=== PATIENT | male | born 1970 | race Caucasian/White ===

== ENCOUNTER 2016-04-26 16:46 | Emergency (ER) | payer OTHER ==
[2016-04-26] MEDS ORDERED: LIDOCAINE VISCOUS 2% 15 ML CUP MUCOUS MEM STA (17:14)
[2016-04-26] MEDS ORDERED: IPRATROPIUM-ALBUTEROL 3 ML NEB INHALATION STA (17:14)
[2016-04-26] MEDS ORDERED: ACETAMINOPHEN TAB 500 MG TAB PO STA (17:14)
--- NOTE | 2016-04-26 17:21 | ED ---
URI HPI - General Chief Complaint: Upper Respiratory Infection Stated Complaint: ENT Time Seen by Provider: 04/26/16 17:06 Source: patient, RN notes reviewed Mode of arrival: ambulatory Limitations: no limitations - History of Present Illness Initial Comments: [age] male presents emergency Department chief complaint cough cold runny nose like symptoms. Patient states she's been for the passed to 3 days. Patient states the cough and a sore throat of the worse. Patient states he has body aches every morning he wakes up. Patient states he hasn't really noticed a high fever with it. Patient states she was concerned due to his continued symptoms and the sore throat states that he should be evaluated. Patient states is not currently having any other symptoms at this time. Patient denies any recent fever, chills, shortness of breath, chest pain, back pain, abdominal pain, nausea vomiting, numbness or tingling, dysuria or hematuria, constipation or diarrhea, headaches or visual changes, or any other current symptoms. - Related Data Home Medications Medication Instructions Recorded Confirmed Multivitamin [Men's Multi-Vitamin] 1 tab PO DAILY 04/26/16 04/26/16 Previous Rx's Medication Instructions Recorded Albuterol Inhaler [Ventolin Hfa 1 - 2 puff INHALATION Q4-6H PRN #1 04/26/16 Inhaler] inhaler Azithromycin [Zithromax] 250 mg PO DIRECTED #6 tab 04/26/16 predniSONE 50 mg PO DAILY #5 tab 04/26/16 Allergies Allergy/AdvReac Type Severity Reaction Status Date / Time No Known Allergies Allergy Verified 04/26/16 17:17 Review of Systems ROS Statement: Those systems with pertinent positive or pertinent negative responses have been documented in the HPI. ROS Other: All systems not noted in ROS Statement are negative. Past Medical History Past Medical History: No Reported History History of Any Multi-Drug Resistant Organisms: None Reported Past Surgical History: Bowel Resection, Hernia Repair Past Psychological History: No Psychological Hx Reported Smoking Status: Never smoker Past Alcohol Use History: Rare Past Drug Use History: None Reported General Exam - General Exam Comments Initial Comments: General exam: Alert, active, comfortable in no apparent distress Head: Normocephalic Eyes: Normal reaction of pupils, equal size, normal range of extraocular motion Ears: normal external ear canals, pink tympanic membranes with normal cone of light Nose: clear with pink turbinates Throat: no erythema or exudates with normal sized tonsils Neck: no masses, no nuchal rigidity Chest: no chest wall deformity Lungs: equal air entry with no crackles or wheeze CVS: S1 and S2 normal with no audible mumurs, regular rhythm Abdomen: no hepatosplenomegaly, normal bowel sounds, no guarding or rigidity Spine: no scoliosis or deformity Skin: no rashes Neurological: No focal deficits, tone is normal in all 4 extremities Limitations: no limitations Course Vital Signs 04/26/16 04/26/16 04/26/16 17:01 17:33 17:40 Temperature 98.3 F Pulse Rate 109 H 100 100 Respiratory 18 Rate Blood Pressure 139/87 O2 Sat by Pulse 95 Oximetry Medical Decision Making - Medical Decision Making 45 male presents to the emergency Department chief complaint cough cold runny nose like symptoms. At this time patient is presenting from bronchitis. He has been sick for a long period of time. Time we'll start an antibiotic as well as an inhaler and steroids. We discussed return parameters and follow-up. The patient stated that he understood and all his questions have been answered. This time the patient will be discharged home. - Lab Data Lab Results 04/26/16 04/26/16 Range/Units 17:25 17:25 Influenza Type A RNA Not Detected (Not Detectd) Influenza Type B (PCR) Not Detected (Not Detectd) Group A Strep Rapid Negative (Negative) - Radiology Data Radiology results: report reviewed, image reviewed Disposition Clinical Impression: Acute bronchitis Disposition: HOME SELF-CARE Condition: Stable Instructions: Acute Bronchitis (ED) Additional Instructions: Please use medication as discussed. Please follow up with family doctor if symptoms have not improved over the next two days. Please return to the emergency room if your symptoms increase or worsen or for any other concerns. Prescriptions: Albuterol Inhaler [Ventolin Hfa Inhaler] 1 - 2 puff INHALATION Q4-6H PRN #1 inhaler PRN Reason: Cough Azithromycin [Zithromax] 250 mg PO DIRECTED #6 tab predniSONE 50 mg PO DAILY #5 tab Referrals: Adarsh Holguin MD [Primary Care Provider] - 1-2 days Time of Disposition: 19:23
--- NOTE | 2016-04-26 19:17 | XR ---
EXAMINATION TYPE: XR chest 2V DATE OF EXAM: 04/26/2016 5:36 PM COMPARISON: NONE HISTORY: Cough and congestion TECHNIQUE: Frontal and lateral views of the chest are obtained. FINDINGS: There is no focal air space opacity, pleural effusion, or pneumothorax seen. The cardiac silhouette size is within normal limits. The osseous structures are intact. IMPRESSION: No acute cardiopulmonary process.
[2016-04-26 19:42] VITALS: BP 142/87; PULSE 92; RESP 16; TEMP 97
== END 2016-04-26 19:42 | disposition home or self-care (01) ==
LOC: EC 16:46
DX: J20.9 Acute bronchitis, unspecified (principal)
CPT/HCPCS: 71020; 87081; 87430; 87502; 94640; 99284

== ENCOUNTER 2017-11-04 20:45 | Emergency (ER) | payer OTHER ==
[2017-11-04] MEDS ORDERED: SODIUM CHLORIDE 0.9% 1,000 ML IV ONE (21:12)
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
[2017-11-04 21:25] VITALS: RESP 18
[2017-11-04 22:21] LABS: Basophils % (A) 0 %; Eosinophils # (A) 0.3 k/uL (0-0.7); Eosinophils % (A) 2 %; HCT 42.6 % (39.0-53.0); HGB 14.3 gm/dL (13.0-17.5); Lymphocytes # (A) 1.6 k/uL (1.0-4.8); Lymphocytes % (A) 12 %; MCH 28.8 pg (25.0-35.0); MCHC 33.6 g/dL (31.0-37.0); MCV 85.8 fL (80.0-100.0); Mean Platelet Volume 7.4; Monocytes % (A) 7 %; Neutrophils # (A) 10.3 k/uL (1.3-7.7); Neutrophils % (A) 76 %; Platelet Count 215 k/uL (150-450); RBC 4.96 m/uL (4.30-5.90); RDW 13.5 % (11.5-15.5); WBC 13.5 k/uL (3.8-10.6)
[2017-11-04 22:23] LABS: Carbon Monoxide 1.8 % (<10.0); VBG PH 7.44 (7.31-7.41)
[2017-11-04 22:31] LABS: Anion Gap 9 mmol/L; Blood Urea Nitrogen 15 mg/dL (9-20); Calcium 9.2 mg/dL (8.4-10.2); Carbon Dioxide 25 mmol/L (22-30); Chloride 107 mmol/L (98-107); Glucose 102 mg/dL (74-99); Potassium 4.2 mmol/L (3.5-5.1); Sodium 141 mmol/L (137-145)
[2017-11-04 23:03] VITALS: BP 159/75; PULSE 103; TEMP 98
== END 2017-11-04 23:02 | disposition home or self-care (01) ==
LOC: EC 20:45
DX: I10 Essential (primary) hypertension (principal); T67.8XXA Other effects of heat and light, initial encounter; Z98.890 Other specified postprocedural states; Z79.899 Other long term (current) drug therapy; Z91.030 Bee allergy status; Y92.69 Other specified industrial and construction area as the place of occurrence of the external cause; Y99.0 Civilian activity done for income or pay
CPT/HCPCS: 36415; 80048; 82375; 82803; 85025; 93005; 96360; 99284

== ENCOUNTER 2018-07-03 05:15 | Emergency (ER) | payer BC, OTHER ==
[2018-07-03 05:22] VITALS: BP 131/72; PULSE 78; RESP 18; TEMP 98.5
--- NOTE | 2018-07-03 05:44 | ED ---
General Adult HPI - General Chief complaint: Extremity Injury, Lower Stated complaint: Rt Leg Pain Time Seen by Provider: 07/03/18 05:24 Source: patient Mode of arrival: wheelchair Limitations: no limitations - History of Present Illness Initial comments: Dictation was produced using [employer] dictation software. please excuse any grammatical, word or spelling errors. Chief Complaint: 47-year-old male past medical history of bowel resection and hernia repair presents with right lower extremity pain. History of Present Illness: This is a 47-year-old male presents with right lower extremity pain. Localizes the pain to his right lateral posterior knee. Patient states started when he got up from a chair earlier today. Able to bear weight however does cause him some pain. Denies any knee swelling. Denies any pain anywhere else in his right lower extremity. Patient states position of comfort is with slight flexion. Denies any constitutional symptoms. As any trauma. The ROS documented in this emergency department record has been reviewed and confirmed by me. Those systems with pertinent positive or negative responses have been documented in the HPI. All other systems are other negative and/or noncontributory. PHYSICAL EXAM: General Impression: Alert and oriented x3, not in acute distress HEENT: Normocephalic atraumatic, extra-ocular movements intact, pupils equal and reactive to light bilaterally, mucous membranes moist. Cardiovascular: Heart regular rate and rhythm, S1&S2 audible, no murmurs, rubs or gallops Chest: Lungs clear to auscultation bilaterally, no rhonchi, no wheeze, no rales Abdomen: Bowel sounds present, abdomen soft, non-tender, non-distended, no organomegaly Musculoskeletal: Pulses present and equal in all extremities, no peripheral edema, tenderness to palpation over the distal insertion of the lateral hamstring. No knee effusion, knee joint is otherwise ranged with no complications. Motor: no focal deficits noted Neurological: CN II-XII grossly intact, no focal motor or sensory deficits noted Skin: Intact with no visualized rashes Psych: Normal affect and mood ED course: 47-year-old male with clinical presentation consistent with hamstring tendinitis upon arrival are within acceptable limits. She has by mouth analgesics at home that he is using for his back pain. Patient encouraged to continue using that for his knee pain. Consultation on rest, ice, compression and elevation. Work note provided. X-rays unremarkable. Patient clear for discharge. - Related Data Home Medications Medication Instructions Recorded Confirmed Multivitamin [Men's Multi-Vitamin] 1 tab PO HS 04/26/16 11/04/17 Glucosamine-Chondr 500-400Mg 1 tab PO BID 11/04/17 11/04/17 L.acidoph,Paracasei, B.lactis 1 cap PO HS 11/04/17 11/04/17 [Probiotic] Turmeric Root Extract [Turmeric] 500 mg PO HS 11/04/17 11/04/17 Zinc 50 mg PO HS 11/04/17 11/04/17 Allergies Allergy/AdvReac Type Severity Reaction Status Date / Time bee venom protein (honey bee) Allergy Anaphylaxis Verified 07/03/18 05:22 Review of Systems ROS Statement: Those systems with pertinent positive or pertinent negative responses have been documented in the HPI. ROS Other: All systems not noted in ROS Statement are negative. Past Medical History Past Medical History: No Reported History History of Any Multi-Drug Resistant Organisms: None Reported Past Surgical History: Bowel Resection, Hernia Repair Past Psychological History: No Psychological Hx Reported Smoking Status: Never smoker Past Alcohol Use History: Rare Past Drug Use History: None Reported General Exam Limitations: no limitations Course Vital Signs 07/03/18 05:19 Temperature 98.5 F Pulse Rate 78 Respiratory 18 Rate Blood Pressure 131/72 O2 Sat by Pulse 96 Oximetry Disposition Clinical Impression: Knee pain Disposition: HOME SELF-CARE Condition: Good Instructions (If sedation given, give patient instructions): Knee Pain (ED) Is patient prescribed a controlled substance at d/c from ED?: No Referrals: Adarsh Holguin MD [Primary Care Provider] - 1-2 days Time of Disposition: 06:11
--- NOTE | 2018-07-03 06:05 | XR ---
EXAM: XR Right Knee, 3 views CLINICAL HISTORY: Pain TECHNIQUE: Three views of the right knee. COMPARISON: No relevant prior studies available. FINDINGS: Bones/joints: Unremarkable. No acute fracture. No dislocation. There is degenerative change involving all 3 joint space compartments. Soft tissues: Unremarkable. IMPRESSION: Degenerative changes with no evidence for fracture of the right knee
== END 2018-07-03 06:16 | disposition home or self-care (01) ==
LOC: EC 05:15
DX: M25.561 Pain in right knee (principal); Z91.030 Bee allergy status
CPT/HCPCS: 99283

== ENCOUNTER 2020-04-07 06:12 | Emergency (ER) | payer BC, OTHER ==
[2020-04-07] MEDS ORDERED: SODIUM CHLORIDE 0.9% 1,000 ML IV STA (06:49)
--- NOTE | 2020-04-07 06:58 | ED ---
General Adult HPI - General Chief complaint: Nausea/Vomiting/Diarrhea Stated complaint: weakness,diarrhea Time Seen by Provider: 04/07/20 06:28 Source: patient, RN notes reviewed Mode of arrival: ambulatory Limitations: no limitations - History of Present Illness Initial comments: 49-year-old male presents emergency Department with chief complaint of fatigue, weakness on for a while. Patient states that he woke up yesterday he presented Today because he was so tired, weak feeling. Patient states she started having diarrhea last night that it's been very achy all over. No reported fever but his temp is 99. Patient has no shortness breath, cough or chest congestion out of the usual. No headache or dizziness. No dysuria no hematuria no significant melena hematochezia. - Related Data Home Medications Medication Instructions Recorded Confirmed Multivitamin [Men's Multi-Vitamin] 1 tab PO HS 04/26/16 04/07/20 Lisinopril [Prinivil] 10 mg PO DAILY 04/07/20 04/07/20 Montelukast [Singulair] 10 mg PO DAILY 04/07/20 04/07/20 Previous Rx's Medication Instructions Recorded Amoxicillin/Potassium Clav 1 tab PO Q12HR #20 tab 04/07/20 [Augmentin 875-125 Tablet] Allergies Allergy/AdvReac Type Severity Reaction Status Date / Time bee venom protein (honey bee) Allergy Anaphylaxis Verified 04/07/20 06:50 Review of Systems ROS Statement: Those systems with pertinent positive or pertinent negative responses have been documented in the HPI. ROS Other: All systems not noted in ROS Statement are negative. Past Medical History Past Medical History: Hypertension History of Any Multi-Drug Resistant Organisms: None Reported Past Surgical History: Bowel Resection, Hernia Repair Past Psychological History: No Psychological Hx Reported Smoking Status: Never smoker Past Alcohol Use History: Rare Past Drug Use History: None Reported General Exam Limitations: no limitations General appearance: alert, in no apparent distress Head exam: Present: atraumatic, normocephalic, normal inspection Eye exam: Present: normal appearance, PERRL, EOMI. Absent: scleral icterus, conjunctival injection, periorbital swelling ENT exam: Present: normal exam, normal oropharynx, mucous membranes moist Neck exam: Present: normal inspection, full ROM. Absent: tenderness, meningismus, lymphadenopathy Respiratory exam: Present: normal lung sounds bilaterally. Absent: respiratory distress, wheezes, rales, rhonchi, stridor Cardiovascular Exam: Present: regular rate, normal rhythm, normal heart sounds. Absent: systolic murmur, diastolic murmur, rubs, gallop, clicks GI/Abdominal exam: Present: soft, normal bowel sounds, other (Old surgical scar noted). Absent: distended, tenderness, guarding, rebound, rigid Neurological exam: Present: alert Skin exam: Present: warm, dry, intact, normal color. Absent: rash Course Vital Signs 04/07/20 06:21 Temperature 99.0 F Pulse Rate 104 H Respiratory 16 Rate Blood Pressure 117/81 O2 Sat by Pulse 96 Oximetry Medical Decision Making - Medical Decision Making 49-year-old male presented for generalized not feeling well. Patient had mild abdominal pain, diarrhea. Patient's covid testing is negative. Patient has had mild colitis noted on CT. There is no evidence of perforation. Patient has mild leukocytosis. Patient was started on Augmentin at this point. Patient has questionable urinary tract infection urine culture was performed. - Lab Data Result diagrams: 04/07/20 06:59 04/07/20 06:59 Lab Results 04/07/20 04/07/20 04/07/20 Range/Units 06:59 06:59 06:59 WBC 17.8 H (3.8-10.6) k/uL RBC 5.01 (4.30-5.90) m/uL Hgb 14.9 (13.0-17.5) gm/dL Hct 43.4 (39.0-53.0) % MCV 86.6 (80.0-100.0) fL MCH 29.7 (25.0-35.0) pg MCHC 34.3 (31.0-37.0) g/dL RDW 12.9 (11.5-15.5) % Plt Count 150 (150-450) k/uL MPV 7.7 Neutrophils % 85 % Lymphocytes % 6 % Monocytes % 6 % Eosinophils % 0 % Basophils % 1 % Neutrophils # 15.1 H (1.3-7.7) k/uL Lymphocytes # 1.0 (1.0-4.8) k/uL Monocytes # 1.0 (0-1.0) k/uL Eosinophils # 0.1 (0-0.7) k/uL Basophils # 0.1 (0-0.2) k/uL Sodium 135 L (137-145) mmol/L Potassium 3.7 (3.5-5.1) mmol/L Chloride 105 (98-107) mmol/L Carbon Dioxide 23 (22-30) mmol/L Anion Gap 7 mmol/L BUN 15 (9-20) mg/dL Creatinine 0.97 (0.66-1.25) mg/dL Est GFR (CKD-EPI)AfAm >90 (>60 ml/min/1.73 sqM) Est GFR (CKD-EPI)NonAf >90 (>60 ml/min/1.73 sqM) Glucose 162 H (74-99) mg/dL Calcium 8.2 L (8.4-10.2) mg/dL Magnesium 1.8 (1.6-2.3) mg/dL Total Bilirubin 0.8 (0.2-1.3) mg/dL AST 22 (17-59) U/L ALT 20 (4-49) U/L Alkaline Phosphatase 65 (38-126) U/L Troponin I 0.014 (0.000-0.034) ng/mL Total Protein 6.7 (6.3-8.2) g/dL Albumin 3.7 (3.5-5.0) g/dL Lipase 93 (23-300) U/L Urine Color Urine Appearance (Clear) Urine pH (5.0-8.0) Ur Specific [place] (1.001-1.035) Urine Protein (Negative) Urine Glucose (UA) (Negative) Urine Ketones (Negative) Urine Blood (Negative) Urine Nitrite (Negative) Urine Bilirubin (Negative) Urine Urobilinogen (<2.0) mg/dL Ur Leukocyte Esterase (Negative) Urine RBC (0-5) /hpf Urine WBC (0-5) /hpf Ur Squamous Epith Cells (0-4) /hpf Amorphous Sediment (None) /hpf Urine Bacteria (None) /hpf Urine Mucus (None) /hpf Coronavirus (PCR) (Not Detectd) 04/07/20 04/07/20 Range/Units 07:00 07:20 WBC (3.8-10.6) k/uL RBC (4.30-5.90) m/uL Hgb (13.0-17.5) gm/dL Hct (39.0-53.0) % MCV (80.0-100.0) fL MCH (25.0-35.0) pg MCHC (31.0-37.0) g/dL RDW (11.5-15.5) % Plt Count (150-450) k/uL MPV Neutrophils % % Lymphocytes % % Monocytes % % Eosinophils % % Basophils % % Neutrophils # (1.3-7.7) k/uL Lymphocytes # (1.0-4.8) k/uL Monocytes # (0-1.0) k/uL Eosinophils # (0-0.7) k/uL Basophils # (0-0.2) k/uL Sodium (137-145) mmol/L Potassium (3.5-5.1) mmol/L Chloride (98-107) mmol/L Carbon Dioxide (22-30) mmol/L Anion Gap mmol/L BUN (9-20) mg/dL Creatinine (0.66-1.25) mg/dL Est GFR (CKD-EPI)AfAm (>60 ml/min/1.73 sqM) Est GFR (CKD-EPI)NonAf (>60 ml/min/1.73 sqM) Glucose (74-99) mg/dL Calcium (8.4-10.2) mg/dL Magnesium (1.6-2.3) mg/dL Total Bilirubin (0.2-1.3) mg/dL AST (17-59) U/L ALT (4-49) U/L Alkaline Phosphatase (38-126) U/L Troponin I (0.000-0.034) ng/mL Total Protein (6.3-8.2) g/dL Albumin (3.5-5.0) g/dL Lipase (23-300) U/L Urine Color Yellow Urine Appearance Cloudy (Clear) Urine pH 6.0 (5.0-8.0) Ur Specific [place] 1.036 H (1.001-1.035) Urine Protein 2+ H (Negative) Urine Glucose (UA) Negative (Negative) Urine Ketones Negative (Negative) Urine Blood Small H (Negative) Urine Nitrite Negative (Negative) Urine Bilirubin Negative (Negative) Urine Urobilinogen 2.0 (<2.0) mg/dL Ur Leukocyte Esterase Small H (Negative) Urine RBC 2 (0-5) /hpf Urine WBC 21 H (0-5) /hpf Ur Squamous Epith Cells 1 (0-4) /hpf Amorphous Sediment Rare H (None) /hpf Urine Bacteria Rare H (None) /hpf Urine Mucus Many H (None) /hpf Coronavirus (PCR) Not Detected (Not Detectd) Disposition Clinical Impression: Colitis, UTI (urinary tract infection) Disposition: HOME SELF-CARE Condition: Stable Instructions (If sedation given, give patient instructions): Colitis (ED) Additional Instructions: Please return to the Emergency Department if symptoms worsen or any other concerns. Prescriptions: Amoxicillin/Potassium Clav [Augmentin 875-125 Tablet] 1 tab PO Q12HR #20 tab Is patient prescribed a controlled substance at d/c from ED?: No Referrals: Adarsh Holguin MD [Primary Care Provider] - 1-2 days Dennise Rosenbaum MD [STAFF PHYSICIAN] - 1-2 days Time of Disposition: 09:10
[2020-04-07 07:06] LABS: Basophils # (A) 0.1 k/uL (0-0.2); Basophils % (A) 1 %; Eosinophils # (A) 0.1 k/uL (0-0.7); Eosinophils % (A) 0 %; HCT 43.4 % (39.0-53.0); HGB 14.9 gm/dL (13.0-17.5); Lymphocytes % (A) 6 %; MCH 29.7 pg (25.0-35.0); MCHC 34.3 g/dL (31.0-37.0); MCV 86.6 fL (80.0-100.0); Mean Platelet Volume 7.7; Monocytes % (A) 6 %; Neutrophils # (A) 15.1 k/uL (1.3-7.7); Neutrophils % (A) 85 %; Platelet Count 150 k/uL (150-450); RBC 5.01 m/uL (4.30-5.90); RDW 12.9 % (11.5-15.5); WBC 17.8 k/uL (3.8-10.6)
[2020-04-07 07:23] LABS: ALT 20 U/L (4-49); AST 22 U/L (17-59); African American GFR (CKD) >90 (>60 ml/min/1.73 sqM); Albumin 3.7 g/dL (3.5-5.0); Alkaline Phosphatase 65 U/L (38-126); Anion Gap 7 mmol/L; Blood Urea Nitrogen 15 mg/dL (9-20); Calcium 8.2 mg/dL (8.4-10.2); Carbon Dioxide 23 mmol/L (22-30); Chloride 105 mmol/L (98-107); Glucose 162 mg/dL (74-99); Lipase 93 U/L (23-300); Magnesium 1.8 mg/dL (1.6-2.3); Non-African American GFR(CKD) >90 (>60 ml/min/1.73 sqM); Potassium 3.7 mmol/L (3.5-5.1); Sodium 135 mmol/L (137-145); Total Bilirubin 0.8 mg/dL (0.2-1.3); Total Protein 6.7 g/dL (6.3-8.2)
[2020-04-07 08:06] LABS: Amorphous Sediment,Urine Rare /hpf; Appearance,Urine Cloudy (Clear); Bacteria,Urine Rare /hpf; Bilirubin,Urine Negative (Negative); Blood,Urine Small (Negative); Color,Urine Yellow; Glucose,Urine (UA) Negative (Negative); Ketones,Urine Negative (Negative); Leukocyte Esterase,Urine Small (Negative); Mucus,Urine Many /hpf; Nitrite,Urine Negative (Negative); Protein,Urine 2+ (Negative); RBC,Urine 2 /hpf (0-5); Specific Gravity,Urine 1.036 (1.001-1.035); Squamous Epithelial Cell,Urine 1 /hpf (0-4); WBC,Urine 21 /hpf (0-5)
--- NOTE | 2020-04-07 08:08 | XR ---
EXAMINATION TYPE: XR chest 2V DATE OF EXAM: 04/07/2020 COMPARISON: Chest x-ray September 24, 2016 HISTORY: Cough, possible covid. TECHNIQUE: Frontal and lateral views of the chest are obtained. FINDINGS: There is no new Suspicious focal air space opacity, pleural effusion, or pneumothorax seen . The cardiac silhouette size remains within normal limits. The osseous structures are intact. IMPRESSION: No new suspicious acute pulmonary process. No significant change from prior.
--- NOTE | 2020-04-07 08:56 | CT ---
EXAMINATION TYPE: CT abdomen pelvis w con DATE OF EXAM: 04/07/2020 COMPARISON: none. HISTORY: Right upper quadrant pain since yesterday. CT DLP: 122 mGycm, Automated Exposure Control for Dose Reduction was Utilized. CONTRAST: CT scan of the abdomen and pelvis is performed without oral and with IV Contrast, patient injected wi th 100 mL of Isovue 300. FINDINGS: LUNG BASES: Dependent atelectasis. There Is mild bibasilar linear scarring and/or atelectasis. There is 8 x 5 mm left basilar nodule axial image 21 posterior lateral aspect. LIVER/GB: Liver is diffusely low dense consistent with fatty infiltration. Gallbladder has distended margins without surrounding inflammatory change. Liver is normal in size. PANCREAS: No significant abnormality is seen. SPLEEN: Splenomegaly is seen measuring 15.5 cm long axis coronal image 71. ADRENALS: No significant abnormality is seen. KIDNEYS: Symmetric cortical medullary uptake and excretion without concerning renal mass or hydroneph rosis seen bilaterally. BOWEL: Suboptimal evaluation without enteric contrast. Stomach poorly distended above suboptimally ev aluated. No suspicious small or large bowel dilatation. Mild/moderate wall thickening in the right co sandy. Mild ill-defined fluid and fat stranding near the hepatic flexure. Transverse colon shows mild t o moderate wall thickening with mild/moderate ill-defined fluid and fat stranding in the upper to mid abdomen. [id number] wall thickening extends into the left colon without significant fat strand ing. No free air. No well-formed fluid collection PROSTATE/SEMINAL VESICLES: Left-sided pelvic phleboliths. Normal-sized prostate. LYMPH NODES: No greater than 1cm abdominal or pelvic lymph nodes are appreciated. OSSEOUS STRUCTURES: Mild disc space narrowing lumbosacral junction. Mild facet arthropathy lower lumb ar levels. OTHER: No significant additional abnormality is seen. IMPRESSION: 1. Findings consistent with a mild to moderate uncomplicated acute colitis involving transverse colon with possible some involvement of the right and left colon. Differential includes infectious, inflam matory, and much less likely ischemic etiologies. Correlate clinically. 2. Note is made of 8 x 5 mm left basilar nodule. Advise nonemergent follow-up chest CT to assess for additional pulmonary nodules.
[2020-04-07] MEDS ORDERED: cefTRIAXone IN SWFI 1,000 MG/10 ML SYRINGE IVP STA (09:09)
[2020-04-07 09:36] VITALS: BP 122/73; PULSE 92; RESP 18; TEMP 98.3
== END 2020-04-07 09:36 | disposition home or self-care (01) ==
LOC: EC 06:12
DX: K52.9 Noninfective gastroenteritis and colitis, unspecified (principal); N39.0 Urinary tract infection, site not specified; I10 Essential (primary) hypertension; Z79.899 Other long term (current) drug therapy; Z91.030 Bee allergy status; Z20.828 Contact with and (suspected) exposure to other viral communicable diseases
CPT/HCPCS: 36415; 93005; 80053; 83690; 83735; 84484; 85025; 81001; 87086; 87635; 71046; 74177; 99285; 96374; 96361 ×3; J0696; Q9967

== ENCOUNTER 2020-06-06 09:23 | Day surgery (SDC) | payer BC ==
[2020-06-05 08:26] VITALS: BMI 26.6
[~2020-06-06 09:23] MED LIST: LACTATED RINGERS 1,000 ML IV SCH; LIDOCAINE 1% (10MG/ML) FOR IV START INTRADERMA PRN
[2020-06-06 09:59] VITALS: TEMP 97.8
[2020-06-06] MEDS ORDERED: PROPOFOL 10 MG/ML 20 ML VIAL IV ONE (10:29)
[2020-06-06 11:04] VITALS: RESP 16
--- NOTE | 2020-06-06 11:04 | P.PCN ---
Date of Procedure: 06/06/20 Procedure(s) Performed: BRIEF HISTORY: Patient is a 49-year-old pleasant male scheduled for an elective colonoscopy as a part of screening for colorectal neoplasia. Next PROCEDURE PERFORMED: Colonoscopy. PREOPERATIVE DIAGNOSIS: Screening for colon cancer. IV sedation per Anesthesia. PROCEDURE: After informed consent was obtained, the patient, was brought into the endoscopy unit. IV sedation was administered by Anesthesia under continuous monitoring. Digital rectal examination was normal. Initially the Olympus CF-160 flexible video colonoscope was then inserted in the rectum, gradually advanced into the cecum without any difficulty. Careful examination was performed as the scope was gradually being withdrawn. Ileocecal valve and the appendiceal orifice were visualized and appeared normal. Prep was excellent. Mucosa of the cecum, ascending colon, transverse colon, descending colon, sigmoid colon, and rectum appeared normal. Retroflexion was performed in the rectum and no lesions were seen. The patient tolerated the procedure well. IMPRESSION: Normal-appearing colon from rectum to cecum with no evidence of colorectal neoplasia. RECOMMENDATIONS: Findings of this examination were discussed with the patient well as his family. He was advised to have a repeat screening colonoscopy in 10 years..
[2020-06-06 11:13] VITALS: BP 139/89; PULSE 74
== END 2020-06-06 11:42 ==
LOC: ORWHC2ENDO 09:23
PROVIDERS: ATTEND Internal Medicine Gastroenterology
DX: Z12.11 Encounter for screening for malignant neoplasm of colon (principal); I10 Essential (primary) hypertension; Z91.030 Bee allergy status; Z79.899 Other long term (current) drug therapy
CPT/HCPCS: J2704; G0121

== ENCOUNTER 2020-10-27 17:18 | Emergency (ER) | payer BC, OTHER ==
--- NOTE | 2020-10-27 17:59 | XR ---
EXAMINATION TYPE: XR knee complete LT DATE OF EXAM: 10/27/2020 COMPARISON: None HISTORY: Pain TECHNIQUE: 3 views FINDINGS: There is some narrowing of the medial joint space of the left knee. I see no fracture nor d islocation. There is no sign of joint effusion. There is minor spurring of the medial femoral condyle . IMPRESSION: Osteoarthritis in the medial joint space. No fracture.
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
[2020-10-27 18:39] VITALS: BP 128/78; PULSE 96; RESP 18; TEMP 98
== END 2020-10-27 18:38 | disposition home or self-care (01) ==
LOC: EC 17:18
DX: S89.92XA Unspecified injury of left lower leg, initial encounter (principal); M17.12 Unilateral primary osteoarthritis, left knee; I10 Essential (primary) hypertension; Z79.899 Other long term (current) drug therapy; W22.8XXA Striking against or struck by other objects, initial encounter; Y93.01 Activity, walking, marching and hiking
CPT/HCPCS: 99283

== ENCOUNTER 2023-04-07 18:24 | Emergency (ER) | payer BC ==
[2023-04-07] MEDS ORDERED: IBUPROFEN 600 MG TAB PO STA (19:55)
[2023-04-07] MEDS ORDERED: ACETAMINOPHEN TAB 325 MG TAB PO STA (19:55)
--- NOTE | 2023-04-07 20:50 | ED ---
General Adult HPI - General Chief complaint: Fever Stated complaint: body aches,coughing blood, vomiting Time Seen by Provider: 04/07/23 19:16 Source: patient, RN notes reviewed Mode of arrival: ambulatory Limitations: no limitations - History of Present Illness Initial comments: 52-year-old male with no significant past medical history presents the emergency department with a chief complaint of cough. Patient has had a cough that started this morning that ranges from clear to yellow. He does report seeing a touch red streaks in his sputum that has since resolved. He reports accompanying fever, generalized body aches and headache. He does report recent Covid exposure. Denies chest pain or shortness of breath, history of PE, recent plane rides Car rides, tobacco product use. - Related Data Home Medications Medication Instructions Recorded Confirmed Multivitamin [Men's Multi-Vitamin] 1 tab PO DAILY 04/26/16 06/06/20 Montelukast [Singulair] 10 mg PO DAILY 04/07/20 06/06/20 lisinopriL [Prinivil] 10 mg PO DAILY 04/07/20 06/06/20 Zinc 50 mg PO DAILY 06/05/20 06/06/20 Previous Rx's Medication Instructions Recorded Benzonatate [Tessalon Perles] 100 mg PO TID PRN #30 capsule 04/07/23 Allergies Allergy/AdvReac Type Severity Reaction Status Date / Time bee venom protein (honey bee) Allergy Anaphylaxis Verified 04/07/23 19:08 Review of Systems ROS Statement: Those systems with pertinent positive or pertinent negative responses have been documented in the HPI. ROS Other: All systems not noted in ROS Statement are negative. Past Medical History Past Medical History: Hypertension Additional Past Medical History / Comment(s): HX BOWEL OBSTRUCTION 17 YEARS AGO WITH SX. TORN RT ACL-WEARS BRACE TO RIGHT KNEE History of Any Multi-Drug Resistant Organisms: None Reported Past Surgical History: Bowel Resection, Hernia Repair Past Anesthesia/Blood Transfusion Reactions: No Reported Reaction Past Psychological History: No Psychological Hx Reported Smoking Status: Former smoker Past Alcohol Use History: Rare Past Drug Use History: None Reported - Past Family History Mother History Unknown: Yes Additional Family Medical History / Comment(s): MOM ADOPTED-NO INFO ON FATHER General Exam - General Exam Comments Initial Comments: General: Alert, in no acute distress Head: atraumatic normocephalic. Eyes PERRL, EOMI intact, mucous membranes moist Respiratory: Lungs clear to auscultation bilaterally Cardiovascular: Regular rate and rhythm Abdominal: Soft without guarding or rebound Extremities: Normal inspection with full range of motion and normal capillary refill Neuroogic: alert and oriented 3, CN II-XII intact, able to ambulate with steady gait Skin: warm dry and intact with normal color Limitations: no limitations Course Vital Signs 04/07/23 04/07/23 19:05 21:06 Temperature 100.3 F H 98.9 F Pulse Rate 110 H 88 Respiratory 20 18 Rate Blood Pressure 108/73 126/74 O2 Sat by Pulse 95 94 L Oximetry Medical Decision Making - Medical Decision Making Was pt. sent in by a medical professional or institution (, PA, [employer], urgent care, hospital, or longterm...) When possible be specific @ -[No] Did you speak to anyone other than the patient for history (EMS, parent, family, police, friend...)? What history was obtained from this source @ -[No] Did you review nursing and triage notes (agree or disagree)? Why? @ -[I reviewed and agree with nursing and triage notes] Were old charts reviewed (outside hosp., previous admission, EMS record, old EKG, old radiological studies, urgent care reports/EKG's, longterm records)? Report findings @ -[No old charts were reviewed] Differential Diagnosis (chest pain, altered mental status, abdominal pain women, abdominal pain men, vaginal bleeding, weakness, fever, dyspnea, syncope, headache, dizziness, GI bleed, back pain, seizure, CVA, palpatations, mental health, musculoskeletal)? @ -[not applicable] EKG interpreted by me (3pts min.). @ -[As above] X-rays interpreted by me (1pt min.). @ -[None done] CT interpreted by me (1pt min.). @ -[None done] U/S interpreted by me (1pt. min.). @ -[None done] What testing was considered but not performed or refused? (CT, X-rays, U/S, labs)? Why? @ -[None] What meds were considered but not given or refused? Why? @ -[None] Did you discuss the management of the patient with other professionals (professionals i.e. , PA, [employer], lab, RT, psych nurse, social science research assistant, fruit farmer, teacher, regulatory compliance officer, case management specialist)? Give summary @ -[No] Was smoking cessation discussed for >3mins.? @ -[No] Was critical care preformed (if so, how long)? @ -[No] Were there social determinants of health that impacted care today? How? (Homelessness, low income, unemployed, alcoholism, drug addiction, transportation, low edu. Level, literacy, decrease access to med. care, snf, rehab)? @ -[No] Was there de-escalation of care discussed even if they declined (Discuss DNR or withdrawal of care, Hospice)? DNR status @ -[No] What co-morbidities impacted this encounter? (DM, HTN, Smoking, COPD, CAD, Cancer, CVA, ARF, Chemo, Hep., AIDS, mental health diagnosis, sleep apnea, morbid obesity)? @ -[None] Was patient admitted / discharged? Hospital course, mention meds given and route, prescriptions, significant lab abnormalities, going to OR and other pertinent info. @ -Discharged. This is a 52-year-old male who presents the emergency department with a chief complaint of cough. Patient had a history and physical exam. Initially patient febrile. He is provided Tylenol and Motrin with symptomatic improvement. Vital signs are stable. Patient able to patient is Covid positive. I discussed results in detail with the patient verbalized understanding and all questions were addressed. Return precautions discussed in detail. Patient verbalized understanding. She'll be discharged home in stable condition. Case is discussed with [facility] leyva [facility] who agrees with plan of care Undiagnosed new problem with uncertain prognosis? @ -[No] Drug Therapy requiring intensive monitoring for toxicity (Heparin, Nitro, Insulin, Cardizem)? @ -[No] Were any procedures done? @ -[No] Diagnosis/symptom? @ - Cough -COVID-19 Acute, or Chronic, or Acute on Chronic? @ -Acute Uncomplicated (without systemic symptoms) or Complicated (systemic symptoms)? @ -Uncomplicated Side effects of treatment? @ -[No] Exacerbation, Progression, or Severe Exacerbation? @ -[No] Poses a threat to life or bodily function? How? (Chest pain, [place], [place], pneumonia, PE, COPD, DKA, ARF, appy, cholecystitis, CVA, Diverticulitis, Homicidal, Suicidal, threat to staff... and all critical care pts) @ -Low likelihood - Lab Data Lab Results 04/07/23 Range/Units 19:10 Influenza Type A (PCR) Not Detected (Not Detectd) Influenza Type B (PCR) Not Detected (Not Detectd) RSV (PCR) Not Detected (Not Detectd) SARS-CoV-2 (PCR) Detected A (Not Detectd) Disposition Clinical Impression: Cough, COVID-19 Disposition: HOME SELF-CARE Condition: Stable Instructions (If sedation given, give patient instructions): Droplet Precautions (ED), COVID-19 (Coronavirus Disease 2019) (ED) Additional Instructions: Please monitor your symptoms closely Please return to the nearest emergency department if symptoms worsen or persist Prescriptions: Benzonatate [Tessalon Perles] 100 mg PO TID PRN #30 capsule PRN Reason: Cough Is patient prescribed a controlled substance at d/c from ED?: No Referrals: Adarsh Holguin MD [Primary Care Provider] - 1-2 days Time of Disposition: 20:48
[2023-04-07] MEDS ORDERED: BENZONATATE 100 MG CAP PO STA (20:58)
[2023-04-07 21:45] VITALS: BP 126/74; PULSE 88; RESP 18; TEMP 98.9
== END 2023-04-07 21:40 | disposition home or self-care (01) ==
LOC: EC 18:24
DX: U07.1 COVID-19 (principal); I10 Essential (primary) hypertension; Z87.891 Personal history of nicotine dependence; Z91.030 Bee allergy status; Z79.899 Other long term (current) drug therapy
CPT/HCPCS: 87636; 99284

== ENCOUNTER 2023-05-16 06:14 | Emergency (ER) | payer OTHER, BC ==
[2023-05-16 06:26] VITALS: TEMP 97.4
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
[2023-05-16 07:16] VITALS: RESP 16
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
[2023-05-16] MEDS ORDERED: ACET/COD 300 MG/30 MG STARTER PACK 6 TAB BTL PO STA (08:39)
[2023-05-16 08:56] VITALS: BP 140/86; PULSE 68
== END 2023-05-16 08:54 | disposition home or self-care (01) ==
LOC: EC 06:14
DX: S20.212A Contusion of left front wall of thorax, initial encounter (principal); M17.12 Unilateral primary osteoarthritis, left knee; I10 Essential (primary) hypertension; Z79.899 Other long term (current) drug therapy; Z91.030 Bee allergy status; Z87.891 Personal history of nicotine dependence; V69.40XA Driver of heavy transport vehicle injured in collision with unspecified motor vehicles in traffic accident, initial encounter; Y92.410 Unspecified street and highway as the place of occurrence of the external cause
CPT/HCPCS: 99283

== ENCOUNTER 2024-04-03 10:03 | Emergency (ER) | payer BC, OTHER ==
[2024-04-03 10:08] VITALS: TEMP 98.5
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
--- NOTE | 2024-04-03 10:45 | XR ---
EXAMINATION TYPE: XR KUB DATE OF EXAM: 04/03/2024 10:39 AM COMPARISON: None CLINICAL INDICATION: Male, 53 years old with history of Nausea/vomiting; TECHNIQUE: One radiographic view of the abdomen was obtained. FINDINGS: There is a moderate stool burden, otherwise, the bowel gas pattern is nonspecific without d ilated loops of small or large bowel. . Fecal material and gas are demonstrated throughout the colon and rectum. There is no evidence for organomegaly or pneumoperitoneum. The osseous structures are in tact. No abnormal calcifications are present. IMPRESSION: Moderate amount stool, Nonspecific bowel gas pattern without radiographic evidence for acute process. [facility], , 04/03/2024 10:42 AM
--- NOTE | 2024-04-03 10:46 | XR ---
EXAMINATION TYPE: XR chest 2V DATE OF EXAM: 04/03/2024 10:39 AM COMPARISON: Chest radiographs from 05/16/2023 CLINICAL INDICATION: Male, 53 years old with history of Cough, chills; TECHNIQUE: XR chest 2V Frontal and lateral views of the chest. FINDINGS: Lungs/Pleura: There is no evidence of pleural effusion, focal consolidation, or pneumothorax. Pulmonary vascularity: Unremarkable. Heart/mediastinum: Cardiomediastinal silhouette is unremarkable. Musculoskeletal: No acute osseous pathology. IMPRESSION: No acute cardiopulmonary disease/process. [facility], , 04/03/2024 10:44 AM
[2024-04-03 11:18] LABS: Appearance,Urine Clear (Clear); Bilirubin,Urine Negative (Negative); Blood,Urine Negative (Negative); Color,Urine Light Yellow; Glucose,Urine (UA) Negative (Negative); Ketones,Urine Negative (Negative); Leukocyte Esterase,Urine Small (Negative); Mucus,Urine Rare /hpf; Nitrite,Urine Negative (Negative); Protein,Urine Negative (Negative); RBC,Urine 1 /hpf (0-5); Squamous Epithelial Cell,Urine 3 /hpf (0-4); Urobilinogen,Urine <2.0 mg/dL (<2.0); WBC,Urine 11 /hpf (0-5)
[2024-04-03] MEDS: MAGNESIUM CITRATE 296 ML BOTTLE PO ONE (12:14)
[2024-04-03 12:16] VITALS: BP 135/83; PULSE 79; RESP 16
== END 2024-04-03 12:16 | disposition home or self-care (01) ==
LOC: EC 10:03
DX: K59.00 Constipation, unspecified (principal); Z87.891 Personal history of nicotine dependence; Z91.030 Bee allergy status
CPT/HCPCS: 71046; 74018; 81001; 87086; 87636; 87651; 99284

== ENCOUNTER 2024-10-10 12:07 | Emergency (ER) | payer OTHER ==
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
[2024-10-10] MEDS: ACETAMINOPHEN TAB 500 MG TAB PO STA (13:20)
--- NOTE | 2024-10-10 13:31 | US ---
EXAMINATION TYPE: US venous doppler duplex LE RT DATE OF EXAM: 10/10/2024 12:59 PM COMPARISON: NONE CLINICAL INDICATION: Male, 53 years old with history of pain behind knee, r/o clot; pain behind rt kn ee x 1 day, mild swlling per pt's gf, no hx of dvt, no blood thinners, pt tore ACL over 10 years ago and never got surgery, Pain TECHNIQUE: The lower extremity deep venous system is examined utilizing real time linear array sonog logan with graded compression, color doppler sonography, and spectral doppler. SIDE PERFORMED: Right FINDINGS: VESSELS IMAGED: Common Femoral Vein Deep Femoral Vein Greater Saphenous Vein * Femoral Vein Popliteal Vein Small Saphenous Vein * Proximal Calf Veins (* superficial vessels) Right Leg: appears negative for DVT, Color Doppler imaging shows patency of the vessels. Spectral wa veforms are within normal limits. IMPRESSION: 1. Right lower extremity ultrasound negative for deep venous thrombosis. [facility], , 10/10/2024 1:29 PM
[2024-10-10 14:41] VITALS: BP 136/90; PULSE 662; RESP 20; TEMP 98
== END 2024-10-10 14:48 | disposition home or self-care (01) ==
LOC: EC 12:07
DX: G89.29 Other chronic pain (principal); M25.561 Pain in right knee; Z87.891 Personal history of nicotine dependence; Z91.030 Bee allergy status
CPT/HCPCS: 99283